=== PATIENT | female | born 1970 | race Caucasian/White ===

== ENCOUNTER 2016-08-30 12:39 | Day surgery (SDC) | payer BC ==
[~2016-08-30 12:39] MED LIST: BUPIVACAINE LIPOSOME/PF 1.3% 20 ML, SODIUM CHLORIDE 0.9% 10 ML MISCELLANE ONE; ceFAZolin 2 GM in SODIUM CHLORIDE 0.9% 100 ML IVPB ONE; metroNIDAZOLE-NS PMX 500 MG in SALINE 1 100ML.BAG IVPB STA
[2016-08-30 13:47] VITALS: TEMP 97.8; BMI 21.4
[2016-08-30] MEDS ORDERED: LIDOCAINE 1% 20 ML VIAL (10MG/ML) FOR IV START INTRADERMA ONE (13:57)
[2016-08-30] MEDS ORDERED: LACTATED RINGERS 1,000 ML IV ONE (14:00)
[2016-08-30] MEDS ORDERED: ONDANSETRON 4 MG/2 ML VIAL IVP ONE (14:01)
[2016-08-30] MEDS ORDERED: DEXAMETHASONE SOD PHOS (MDV) 100 MG/10 ML VIAL IV ONE (14:01)
[2016-08-30] MEDS ORDERED: NA PHOS,M-B/NA PHOS,DI-BA 133 ML ENEMA RECTAL ONE (14:09)
[2016-08-30] MEDS ORDERED: MIDAZOLAM 2 MG/2 ML VIAL IV ONE (14:35)
[2016-08-30] MEDS ORDERED: HEPARIN SODIUM,PORCINE 5,000 UNIT/ML 1 ML VIAL SQ ONE (14:42)
[2016-08-30] MEDS ORDERED: MIDAZOLAM 2 MG/2 ML VIAL ONE (16:20)
[2016-08-30] MEDS ORDERED: fentaNYL (PF) 50 MCG/ML 2 ML AMP ONE (16:20)
[2016-08-30] MEDS ORDERED: LIDOCAINE 1% INJ 10MG/ML (20 ML MDV) ONE (16:20)
[2016-08-30] MEDS ORDERED: PROPOFOL 10 MG/ML 20 ML VIAL IV ONE (16:20)
[2016-08-30] MEDS ORDERED: KETOROLAC 30 MG/ML 1 ML VIAL ONE (16:20)
[2016-08-30 17:01] VITALS: RESP 18
[2016-08-30 17:35] VITALS: BP 130/72; PULSE 78
--- NOTE | 2016-09-06 08:52 | P.OP ---
Date of Procedure: 08/30/16 Preoperative Diagnosis: Thrombosed external hemorrhoid Postoperative Diagnosis: Same Procedure(s) Performed: Excision of thrombosed external hemorrhoid 2 pedicle Anesthesia: JERRODA, local Surgeon: Mer Trammell Pathology: other Condition: stable Disposition: PACU Indications for Procedure: 46 years old female presents with acute onset of severe pain in the perianal area with palpable lump. Clinical exam showed thrombosed external hemorrhoids. Informed consent obtained and patient elected to undergo open hemorrhoidectomy and drainage of thrombosed external hemorrhoids Operative Findings: 2 pedicles of thrombosed external hemorrhoids located at 6 and 8 o clock respectively Description of Procedure: The patient was brought to the operating room and placed in prone jackknife position. The buttock cheeks were to assist in visualization. Betadine was used to prep the skin followed by application of sterile drapes. A timeout was performed to verify correct patient and correct procedure. 30 mL of Exparel was injected to create a local field block. Digital rectal examination was performed. No definite masses felt.. Perianal examination showed 2 thrombosed external hemorrhoid pedicle at 6 and 8:00 respectively. An elliptical skin incision was made overlying the thrombosed hemorrhoid. All the clotted blood was evacuated. Similarly the from was hemorrhoid at 8:00 was also evacuated. Hemostasis was checked. Patient tolerated the procedure well and was taken to postanesthesia care unit in stable condition Sponge, instrument and needle count were correct 2
== END 2016-08-30 17:35 | disposition home or self-care (01) ==
LOC: OR 12:39
PROVIDERS: ATTEND Surgery
DX: K64.5 Perianal venous thrombosis (principal); G89.4 Chronic pain syndrome; M79.7 Fibromyalgia; R51 Headache; F39 Unspecified mood [affective] disorder; F41.0 Panic disorder [episodic paroxysmal anxiety]; F34.1 Dysthymic disorder; F41.9 Anxiety disorder, unspecified; Z79.891 Long term (current) use of opiate analgesic; Z79.899 Other long term (current) drug therapy; Z88.1 Allergy status to other antibiotic agents; Z88.2 Allergy status to sulfonamides; Z88.8 Allergy status to other drugs, medicaments and biological substances
CPT/HCPCS: 81025; 88304; 46320; J2250; J1644; J0690; J2405; J2001; J3010; J1885; J1100; C9290; J2704; 99152; 99153

== ENCOUNTER → 2017-06-11 | Outpatient (CLI) | payer BC ==
[2017-06-11 12:32] LABS: Basophils % (A) 1 %; CHCM 33.2; Eosinophils # (A) 0.3 k/uL (0-0.7); Eosinophils % (A) 6 %; HCT 42.6 % (34.0-46.0); HDW 2.42; HGB 13.6 gm/dL (11.4-16.0); Luc # (Auto) 0.08; Luc % (Auto) 2; Lymphocytes # (A) 0.8 k/uL (1.0-4.8); Lymphocytes % (A) 19 %; MCV 90.7 fL (80.0-100.0); Mean Platelet Volume 7.4; Monocytes # (A) 0.6 k/uL (0-1.0); Monocytes % (A) 14 %; Neutrophils # (A) 2.5 k/uL (1.3-7.7); Neutrophils % (A) 58 %; WBC 4.3 k/uL (3.8-10.6); WBC (Perox) 4.58
[2017-06-11 12:43] LABS: Anion Gap 9 mmol/L; Blood Urea Nitrogen 11 mg/dL (7-17); Carbon Dioxide 27 mmol/L (22-30); Chloride 104 mmol/L (98-107); Glucose 96 mg/dL (74-99); Magnesium 2.1 mg/dL (1.6-2.3); Non-African American GFR(MDRD) >60 (>60 ml/min/1.73 sqM); Phosphorus 3.6 mg/dL (2.5-4.5); Potassium 3.8 mmol/L (3.5-5.1); Sodium 140 mmol/L (137-145); Uric Acid 4.4 mg/dL (3.7-7.4)
[2017-06-11 13:25] LABS: Appearance,Urine Cloudy (Clear); Bacteria,Urine Occasional /hpf; Bilirubin,Urine Negative (Negative); Glucose,Urine (UA) Negative (Negative); Ketones,Urine Negative (Negative); Leukocyte Esterase,Urine Negative (Negative); Mucus,Urine Many /hpf; Nitrite,Urine Negative (Negative); Particle Count 17426; Protein,Urine 1+ (Negative); RBC,Urine 1 /hpf (0-5); Specific Gravity,Urine 1.024 (1.001-1.035); Squamous Epithelial Cell,Urine 3 /hpf (0-4); UA Billing (MACRO vs. MICRO) MICRO; WBC,Urine 3 /hpf (0-5)
[2017-06-11 18:43] LABS: Iron Saturation 15.13 (12.00-45.00); Iron(FE) 46 ug/dL (50-170); Total Iron Binding Capacity 304 ug/dL (228-460)
== END | disposition home or self-care (01) ==
LOC: LABWHC1 11:35
PROVIDERS: ATTEND Internal Medicine Nephrology
DX: R80.9 Proteinuria, unspecified (principal); D64.9 Anemia, unspecified; E55.9 Vitamin D deficiency, unspecified; E21.3 Hyperparathyroidism, unspecified; M10.9 Gout, unspecified; N39.0 Urinary tract infection, site not specified
CPT/HCPCS: 36415; 80048; 81001; 81050; 82306; 82728; 83540; 83550; 83735; 83970; 84100; 84156; 84165; 84550; 85025; 86335

== ENCOUNTER → 2017-08-30 | Outpatient (CLI) | payer BC ==
[2017-08-30 17:31] LABS: T4, Free (Free Thyroxine) 1.08 ng/dL (0.78-2.19)
== END | disposition home or self-care (01) ==
LOC: LABWHC1 16:34
PROVIDERS: ATTEND Internal Medicine Endocrinology, Diabetes & Metabolism
DX: R53.83 Other fatigue (principal); R23.2 Flushing
CPT/HCPCS: 36415; 82607; 82670; 83001; 84146; 84439; 84443; 84481

== ENCOUNTER 2017-11-26 23:38 | Emergency (ER) | payer BC ==
[2017-11-26 23:44] VITALS: BP 153/94; PULSE 82; RESP 18; TEMP 98.8
[2017-11-27] MEDS ORDERED: DIPH,PERTUS(ACELL)TETVAC-LF 0.5 ML VIAL IM ONE (00:07)
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
== END 2017-11-27 00:36 | disposition home or self-care (01) ==
LOC: EC 23:38
DX: S41.111A Laceration without foreign body of right upper arm, initial encounter (principal); M19.90 Unspecified osteoarthritis, unspecified site; F41.9 Anxiety disorder, unspecified; Z23 Encounter for immunization; Z79.891 Long term (current) use of opiate analgesic; Z79.3 Long term (current) use of hormonal contraceptives; Z79.899 Other long term (current) drug therapy; Z88.2 Allergy status to sulfonamides; Z88.8 Allergy status to other drugs, medicaments and biological substances; W18.09XA Striking against other object with subsequent fall, initial encounter; Y92.009 Unspecified place in unspecified non-institutional (private) residence as the place of occurrence of the external cause
CPT/HCPCS: 12002; 90471; 90715; 99283

== ENCOUNTER 2018-01-25 22:09 | Emergency (ER) | payer BC ==
[2018-01-25 22:37] VITALS: RESP 18
[2018-01-26] MEDS ORDERED: MORPHINE SULFATE 4 MG/ML SYRINGE IM STA (00:09)
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
[2018-01-26] MEDS ORDERED: fentaNYL (PF) 50 MCG/ML 2 ML AMP IM STA (00:45)
[2018-01-26] MEDS ORDERED: HYDROmorphone 0.5 MG/0.5 ML SYRINGE IM STA (01:15)
[2018-01-26 02:22] VITALS: BP 134/79; PULSE 79; TEMP 97.8
== END 2018-01-26 02:21 | disposition home or self-care (01) ==
LOC: EC 22:09
DX: K62.89 Other specified diseases of anus and rectum (principal); M19.90 Unspecified osteoarthritis, unspecified site; F41.9 Anxiety disorder, unspecified; Z79.1 Long term (current) use of non-steroidal anti-inflammatories (NSAID); Z79.891 Long term (current) use of opiate analgesic; Z79.52 Long term (current) use of systemic steroids; Z79.899 Other long term (current) drug therapy; Z88.5 Allergy status to narcotic agent; Z88.1 Allergy status to other antibiotic agents; Z88.2 Allergy status to sulfonamides
CPT/HCPCS: 99283; 96372 ×3; J2270; J3010; J1170

== ENCOUNTER → 2018-02-13 | Outpatient (CLI) | payer BC, MEDICARE ==
--- NOTE | 2018-02-13 22:51 | CT ---
EXAMINATION TYPE: CT pelvis wo/w con DATE OF EXAM: 02/13/2018 COMPARISON: 09/20/2012 HISTORY: 47-year-old female anal pain X 18 months TECHNIQUE: Contiguous axial scanning of the pelvis before and after administration of 100 ml Isovue 3 00 IV contrast. Delayed images through pelvis and coronal/sagittal reconstructions performed. CT DLP: 1303 mGycm Automated exposure control for dose reduction was used. FINDINGS: There is moderate stool burden. Unable to clearly delineate the appendix due to closely clustered bow el loops. No lymphadenopathy seen in the lower abdomen. No dilated small bowel, free fluid, or free a ir. Bladder urine distended. Mild circumferential bladder wall thickening. Anteverted uterus. Central uterus appears slightly bulky and heterogeneous, reference axial image 30. Also, possible heterogeneously hypoechoic enlargement in the region of the cervix, axial image 34 an d sagittal image 59. Rectum shows no gross abnormality. Prominent and borderline sized inguinal lymph nodes measuring up t o 1.4 cm, nonspecific. Follicular change in both ovaries, dominant follicle on the left measuring 2.1 cm. Bones: Degenerative disc disease L5-S1 and to a lesser degree L4-L5. Moderate to severe right neural foraminal stenosis at L5-S1 and moderate on the left. IMPRESSION: 1. SOMEWHAT BULKY AND HETEROGENEOUS APPEARANCE TO THE CENTRAL UTERUS. RECOMMEND PELVIC ULTRASOUND TO EXCLUDE ANY ENDOMETRIAL ABNORMALITY. 2. THE CERVIX APPEARS HETEROGENEOUS AND ENLARGED. CORRELATE WITH DIRECT VISUALIZATION, PHYSICAL EXAM FINDINGS, AND PAP SMEAR RESULTS TO EXCLUDE UNDERLYING NEOPLASM. 3. MILD CIRCUMFERENTIAL BLADDER WALL THICKENING. CORRELATE TO EXCLUDE CYSTITIS.
== END | disposition home or self-care (01) ==
LOC: RADCTMAIN 17:27
PROVIDERS: ATTEND Family Medicine
DX: N32.89 Other specified disorders of bladder (principal); K62.89 Other specified diseases of anus and rectum
CPT/HCPCS: 72194; Q9967

== ENCOUNTER → 2018-03-06 | Outpatient (CLI) | payer MEDICARE, BC ==
--- NOTE | 2018-03-06 14:31 | US ---
EXAMINATION TYPE: US pelvis complete transvag DATE OF EXAM: 03/06/2018 COMPARISON: CT pelvis 02/13/2018, ultrasound pelvis 09/07/2012 CLINICAL HISTORY: N80.3 endometriosis of the pelvic peritoneum. anal pain, left pelvic pain, ablation 2011 TECHNIQUE: Transvaginal (TV) and Transabdominal (TA) . Transabdominal sonographic images of the pel vis were acquired. Transvaginal sonographic images were medically necessary to better assess the fol lowing anatomy: uterus and ovaries Date of LMP: unknown EXAM MEASUREMENTS: Uterus: 7.3 x 4.4 x 5.4 cm Endometrial Stripe: 0.4 cm Right Ovary: 2.4 x 1.5 x 1.5 cm Left Ovary: 2.9 x 1.4 x 2.7 cm 1. Uterus: Anteverted heterogeneous. nabothian cysts. Multiple cystic areas within body/fundus pos sibly along the endometrium, largest = 0.6cm 2. Endometrium: appears wnl as visualized 3. Right Ovary: lobulated 4. Left Ovary: dominant follicle = 1.7 x 1.3 x 1.8cm 5. Bilateral Adnexa: appears wnl 6. Posterior cul-de-sac: wnl IMPRESSION: Suspect there may be some minimal fluid along the endometrium, follow-up suggested, consi tristin HEMATOLOGIST ONCOLOGIST consult
== END | disposition home or self-care (01) ==
LOC: RADUSWWP 13:11
PROVIDERS: ATTEND Family Medicine
DX: N80.3 Endometriosis of pelvic peritoneum (principal)
CPT/HCPCS: 76830; 76856

== ENCOUNTER 2018-08-26 16:45 | Emergency (ER) | payer MEDICARE, BC ==
[2018-08-26 17:07] VITALS: TEMP 98.3
[2018-08-26 19:34] LABS: Basophils % (A) 1 %; Eosinophils # (A) 0.1 k/uL (0-0.7); Eosinophils % (A) 3 %; HCT 37.2 % (34.0-46.0); HGB 12.2 gm/dL (11.4-16.0); Lymphocytes # (A) 1.6 k/uL (1.0-4.8); Lymphocytes % (A) 39 %; MCH 28.6 pg (25.0-35.0); MCHC 32.9 g/dL (31.0-37.0); MCV 86.9 fL (80.0-100.0); Mean Platelet Volume 6.3; Monocytes # (A) 0.4 k/uL (0-1.0); Monocytes % (A) 10 %; Neutrophils # (A) 1.8 k/uL (1.3-7.7); Neutrophils % (A) 44 %; Platelet Count 269 k/uL (150-450); RBC 4.28 m/uL (3.80-5.40); RDW 13.8 % (11.5-15.5)
[2018-08-26 19:42] LABS: ALT 27 U/L (9-52); AST 24 U/L (14-36); Albumin 4.3 g/dL (3.5-5.0); Alkaline Phosphatase 59 U/L (38-126); Anion Gap 7 mmol/L; Blood Urea Nitrogen 12 mg/dL (7-17); Calcium 9.1 mg/dL (8.4-10.2); Carbon Dioxide 27 mmol/L (22-30); Chloride 103 mmol/L (98-107); Glucose 113 mg/dL (74-99); Potassium 3.8 mmol/L (3.5-5.1); Sodium 137 mmol/L (137-145); Total Bilirubin 0.6 mg/dL (0.2-1.3); Total Protein 7.2 g/dL (6.3-8.2)
[2018-08-26 19:43] LABS: Appearance,Urine Cloudy (Clear); Bilirubin,Urine Negative (Negative); Blood,Urine Large (Negative); Color,Urine Red; Glucose,Urine (UA) Negative (Negative); Ketones,Urine Negative (Negative); Leukocyte Esterase,Urine Small (Negative); Nitrite,Urine Negative (Negative); Protein,Urine 1+ (Negative); RBC,Urine >182 /hpf (0-5); Specific Gravity,Urine 1.014 (1.001-1.035); Urobilinogen,Urine <2.0 mg/dL (<2.0); WBC,Urine >182 /hpf (0-5)
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
--- NOTE | 2018-08-26 21:12 | US ---
EXAMINATION TYPE: US transvaginal DATE OF EXAM: 08/26/2018 COMPARISON: CT pelvis February 13, 2018. Pelvic ultrasound March 06, 2018 CLINICAL HISTORY: Pain. anal pain and vaginal pain. Ken[place] lump in vagina and anal area.Ablation done 2 012. TECHNIQUE: Transvaginal (TV). Transabdominal sonographic images of the pelvis were acquired. Trans vaginal sonographic images were medically necessary to better assess the following anatomy: EXAM MEASUREMENTS: Uterus: 8.0 x 4.4 x 5.0 cm Endometrial Stripe: 0.6 cm 1. Uterus: Anteverted Nabothian cysts seen. 2. Endometrium: wnl 3. Right Ovary: Obscured by overlying bowel gas 4. Left Ovary: Obscured by overlying bowel gas 5. Bilateral Adnexa: wnl 6. Posterior cul-de-sac: wnl Initial images show small nabothian cysts in the cervix. Heterogeneous uterus is present. Endometrium is poorly defined measuring up to 6 mm. No free fluid is seen in pelvis. Neither ovary is clearly visualized on images saved. No adnexal lesions are seen. IMPRESSION: No suspicious finding seen to account for patient's symptoms.
--- NOTE | 2018-08-26 23:00 | CT ---
EXAM: CT Abdomen and Pelvis With Intravenous Contrast CLINICAL HISTORY: Pain TECHNIQUE: Axial computed tomography images of the abdomen and pelvis with intravenous contrast. CTDI is 0.085, 0.085, 7, 5.8 mGy and DLP is 617.5 mGy-cm. This CT exam was performed using one or more of the following dose reduction techniques: automated exposure control, adjustment of the mA and/or kV according to patient size, and/or use of iterative reconstruction technique. COMPARISON: 02/13/2018 FINDINGS: Lung bases: Mild bilateral dependent densities are favored to represent atelectasis. ABDOMEN: Liver: Unremarkable. Gallbladder and bile ducts: Unremarkable. No calcified stones. Pancreas: Unremarkable. Spleen: Unremarkable. Adrenals: Unremarkable. Kidneys and ureters: Subcentimeter focus of hypoattenuation in the left kidney is too small to characterize. No hydronephrosis. Stomach and bowel: Moderate colonic stool is compatible constipation. PELVIS: Appendix: Not identified. Bladder: Unremarkable. Reproductive: Unremarkable as visualized. ABDOMEN and PELVIS: Intraperitoneal space: Unremarkable. No free air. Bones/joints: No acute osseous abnormality. Soft tissues: Bilateral breast implants. Vasculature: Unremarkable. No abdominal aortic aneurysm. Lymph nodes: Unremarkable. IMPRESSION: No acute findings. Moderate colonic stool is suggestive of constipation.
[2018-08-26 23:16] VITALS: RESP 16
[2018-08-26] MEDS ORDERED: MAGNESIUM CITRATE 296 ML BOTTLE PO ONE (23:37)
[2018-08-27 01:48] VITALS: BP 113/68; PULSE 77
== END 2018-08-27 00:05 | disposition home or self-care (01) ==
LOC: EC 16:45
DX: N93.9 Abnormal uterine and vaginal bleeding, unspecified (principal); R10.2 Pelvic and perineal pain; N89.8 Other specified noninflammatory disorders of vagina; G89.29 Other chronic pain; Z88.1 Allergy status to other antibiotic agents; Z88.2 Allergy status to sulfonamides; Z88.5 Allergy status to narcotic agent; Z79.891 Long term (current) use of opiate analgesic; Z79.899 Other long term (current) drug therapy; Z98.51 Tubal ligation status; Z98.890 Other specified postprocedural states; Z80.0 Family history of malignant neoplasm of digestive organs
CPT/HCPCS: 36415; 80053; 85025; 81001; 76830; 74177; 99284; Q9967

== ENCOUNTER → 2018-09-25 | Outpatient (CLI) | payer MEDICARE ==
--- NOTE | 2018-09-27 08:25 | MM ---
Reason for exam: screening (asymptomatic). Last mammogram was performed 3 years and 2 months ago. History: Patient is nulliparous. Retro-pectoral saline implants in both breasts, October 2003. Took hormonal contraceptives for 20 years beginning at age 42. Physical Findings: A clinical breast exam by your physician is recommended on an annual basis and results should be correlated with mammographic findings. MG 3D Screen Mammo Imp/Cad Bilateral CC, MLO, and ID view(s) were taken. Prior study comparison: August 10, 2015, bilateral MG screening mammo implant/CAD. August 27, 2013, CAD bilateral diagnostic mammogram. The breast tissue is heterogeneously dense. This may lower the sensitivity of mammography. Bilateral saline implants. No significant changes when compared with prior studies. ASSESSMENT: Negative, BI-RAD 1 RECOMMENDATION: Routine screening mammogram of both breasts in 1 year. Patient should continue monthly self breast exams. A negative report should not preclude additional follow up of suspicious palpable abnormalities.
== END | disposition home or self-care (01) ==
LOC: RADMAMWWP 15:33
PROVIDERS: ATTEND Obstetrics & Gynecology
DX: Z12.31 Encounter for screening mammogram for malignant neoplasm of breast (principal)
CPT/HCPCS: 77063; 77067

== ENCOUNTER → 2019-03-23 | Outpatient (CLI) | payer MEDICARE | LOC: LABWHC1 09:00 | PROVIDERS: ATTEND Nurse Practitioner Adult Health | DX: L29.0 Pruritus ani (principal) | CPT/HCPCS: 87328; 87329 ==

== ENCOUNTER 2019-05-26 20:47 | Emergency (ER) | payer MEDICARE ==
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
[2019-05-26 21:47] LABS: Appearance,Urine Clear (Clear); Bilirubin,Urine Negative (Negative); Blood,Urine Negative (Negative); Color,Urine Light Yellow; Glucose,Urine (UA) Negative (Negative); Ketones,Urine Negative (Negative); Leukocyte Esterase,Urine Negative (Negative); Nitrite,Urine Negative (Negative); PH, Urine 6.5 (5.0-8.0); Protein,Urine Negative (Negative); Specific Gravity,Urine 1.008 (1.001-1.035); Urobilinogen,Urine <2.0 mg/dL (<2.0)
[2019-05-26 22:20] VITALS: BP 142/86; PULSE 76; RESP 17; TEMP 97.8
== END 2019-05-26 22:30 | disposition home or self-care (01) ==
LOC: EC 20:47
DX: L98.499 Non-pressure chronic ulcer of skin of other sites with unspecified severity (principal); F41.9 Anxiety disorder, unspecified; Z79.899 Other long term (current) drug therapy; M19.90 Unspecified osteoarthritis, unspecified site; Z88.2 Allergy status to sulfonamides; Z88.1 Allergy status to other antibiotic agents
CPT/HCPCS: 36415; 81003; 86780; 87040; 87070; 87205; 99283

== ENCOUNTER → 2019-06-09 | Outpatient (CLI) | payer MEDICARE ==
[2019-06-09 18:00] LABS: Appearance,Urine Clear (Clear); Bilirubin,Urine Negative (Negative); Blood,Urine Negative (Negative); Color,Urine Yellow; Glucose,Urine (UA) Negative (Negative); Ketones,Urine Negative (Negative); Leukocyte Esterase,Urine Negative (Negative); Nitrite,Urine Negative (Negative); PH, Urine 6.5 (5.0-8.0); Protein,Urine Trace (Negative); Specific Gravity,Urine 1.022 (1.001-1.035); Urobilinogen,Urine <2.0 mg/dL (<2.0)
[2019-06-10 06:47] LABS: African American GFR (CKD) 99.6 (60.0-200.0); Anion Gap 11.3 mmol/L (4.00-12.00); BUN/Creat Ratio 26.25 Ratio (12.00-20.00); Carbon Dioxide 28.7 mmol/L (21.6-31.8); Potassium 3.2 mmol/L (3.5-5.5)
[2019-06-10 06:49] LABS: Total Protein,Urine Random 16.2 mg/dL (0.0-13.5)
[2019-06-10 21:24] LABS: Total Volume 24 Hour,Urine 1800 mL
== END | disposition home or self-care (01) ==
LOC: LABWHC1 17:03
PROVIDERS: ATTEND Nurse Practitioner Family
DX: R80.9 Proteinuria, unspecified (principal)
CPT/HCPCS: 36415; 80048; 81003; 81050; 82570; 84156

== ENCOUNTER 2019-12-20 23:40 | Emergency (ER) | payer MEDICARE ==
[2019-12-20 23:56] VITALS: TEMP 96.8
[2019-12-21] MEDS ORDERED: SODIUM CHLORIDE 0.9% 1,000 ML IV ONE (00:01)
[2019-12-21 00:12] LABS: Basophils # (A) 0.1 k/uL (0-0.2); Basophils % (A) 1 %; Eosinophils # (A) 0.2 k/uL (0-0.7); Eosinophils % (A) 5 %; HCT 36.1 % (34.0-46.0); Lymphocytes # (A) 1.4 k/uL (1.0-4.8); Lymphocytes % (A) 33 %; MCH 29.5 pg (25.0-35.0); MCHC 33.1 g/dL (31.0-37.0); MCV 89.1 fL (80.0-100.0); Mean Platelet Volume 7.2; Monocytes # (A) 0.4 k/uL (0-1.0); Monocytes % (A) 8 %; Neutrophils # (A) 2.1 k/uL (1.3-7.7); Neutrophils % (A) 51 %; Platelet Count 222 k/uL (150-450); RBC 4.05 m/uL (3.80-5.40); RDW 13.3 % (11.5-15.5); VBG PH 7.31 (7.31-7.41); WBC 4.2 k/uL (3.8-10.6)
[2019-12-21 00:22] LABS: ALT 25 U/L (4-34); AST 29 U/L (14-36); Acetaminophen <10.0 ug/mL; African American GFR (CKD) >90 (>60 ml/min/1.73 sqM); Albumin 3.9 g/dL (3.5-5.0); Alcohol <10 mg/dL; Alkaline Phosphatase 57 U/L (38-126); Anion Gap 6 mmol/L; Blood Urea Nitrogen 8 mg/dL (7-17); Calcium 8.5 mg/dL (8.4-10.2); Carbon Dioxide 27 mmol/L (22-30); Chloride 103 mmol/L (98-107); Glucose 118 mg/dL (74-99); Non-African American GFR(CKD) >90 (>60 ml/min/1.73 sqM); Potassium 3.4 mmol/L (3.5-5.1); Salicylate <1.0 mg/dL; Sodium 136 mmol/L (137-145); Total Bilirubin 0.3 mg/dL (0.2-1.3); Total Protein 6.6 g/dL (6.3-8.2)
--- NOTE | 2019-12-21 01:01 | CT ---
EXAMINATION TYPE: CT brain wo con DATE OF EXAM: 12/21/2019 COMPARISON: None HISTORY: AMS CT DLP: 1099.40 mGycm Automated exposure control for dose reduction was used. Ventricles and sulci appear normal. There is no mass effect nor midline shift. There is no sign of in tracranial hemorrhage. There is no evidence of cortical infarct. Calvarium is intact. Sella turcica a ppears normal. IMPRESSION: Normal unenhanced head CT scan.
--- NOTE | 2019-12-21 01:03 | XR ---
EXAMINATION TYPE: XR chest 2V DATE OF EXAM: 12/21/2019 COMPARISON: 09/18/2012 HISTORY: Altered mental status. TECHNIQUE: FINDINGS: Heart and mediastinum are normal. Lungs are clear. Diaphragm is normal. Bony thorax appears normal. There are chest leads. IMPRESSION: Normal chest. No change.
[2019-12-21 01:46] LABS: Appearance,Urine Clear (Clear); Bilirubin,Urine Negative (Negative); Blood,Urine Negative (Negative); Color,Urine Yellow; Glucose,Urine (UA) Negative (Negative); Ketones,Urine Negative (Negative); Leukocyte Esterase,Urine Negative (Negative); Nitrite,Urine Negative (Negative); Protein,Urine Negative (Negative); Specific Gravity,Urine 1.022 (1.001-1.035); Urobilinogen,Urine <2.0 mg/dL (<2.0)
[2019-12-21 01:55] LABS: Amphetamine Screen,Urine Detected (NotDetected); Barbiturate Screen,Urine Detected (NotDetected); Benzodiazepines Screen,Urine Detected (NotDetected); Cocaine Screen,Urine Not Detected (NotDetected); Methadone Screen, Urine Not Detected (NotDetected); Opiate Screen,Urine Detected (NotDetected); Oxycodone Screen, Urine Detected (NotDetected); Phencyclidine Screen,Urine Not Detected (NotDetected); Tricyclic Antidepressant,Urine Detected (NotDetected); Urn Cannabinoid Scrn Detected (NotDetected)
[2019-12-21 02:18] VITALS: BP 128/88; PULSE 65; RESP 12
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
== END 2019-12-21 02:50 | disposition home or self-care (01) ==
LOC: EC 23:40
DX: R41.82 Altered mental status, unspecified (principal); E87.6 Hypokalemia; G43.909 Migraine, unspecified, not intractable, without status migrainosus; G89.4 Chronic pain syndrome; R47.81 Slurred speech; F41.9 Anxiety disorder, unspecified; Z79.899 Other long term (current) drug therapy; Z88.1 Allergy status to other antibiotic agents; Z88.2 Allergy status to sulfonamides; Z88.5 Allergy status to narcotic agent
CPT/HCPCS: 36415; 93005; 80053; 84443; 82375; 82803; 85025; 81003; 80306; 83520; 71046; 70450; 99285; 96360; 96361 ×2; G0480 ×2; 80320; 80329

== ENCOUNTER 2021-04-08 19:34 | Emergency (ER) | payer MEDICARE ==
[2021-04-08 20:13] VITALS: BP 151/91; PULSE 77; RESP 18; TEMP 99.7
[2021-04-08] MEDS ORDERED: ACETAMINOPHEN TAB 325 MG TAB PO STA (21:12)
[2021-04-08 21:57] LABS: Basophils # (A) 0.1 k/uL (0-0.2); Basophils % (A) 1 %; Eosinophils # (A) 0.2 k/uL (0-0.7); Eosinophils % (A) 5 %; HCT 36.8 % (34.0-46.0); HGB 12.4 gm/dL (11.4-16.0); Lymphocytes # (A) 2.1 k/uL (1.0-4.8); Lymphocytes % (A) 43 %; MCH 30.5 pg (25.0-35.0); MCHC 33.9 g/dL (31.0-37.0); Mean Platelet Volume 7.3; Monocytes # (A) 0.5 k/uL (0-1.0); Monocytes % (A) 9 %; Neutrophils # (A) 1.9 k/uL (1.3-7.7); Neutrophils % (A) 39 %; Platelet Count 249 k/uL (150-450); RBC 4.08 m/uL (3.80-5.40); RDW 12.3 % (11.5-15.5); WBC 4.8 k/uL (3.8-10.6)
[2021-04-08 22:12] LABS: ALT 22 U/L (4-34); AST 27 U/L (14-36); African American GFR (CKD) >90 (>60 ml/min/1.73 sqM); Albumin 4.1 g/dL (3.5-5.0); Alkaline Phosphatase 77 U/L (38-126); Anion Gap 7 mmol/L; Blood Urea Nitrogen 15 mg/dL (7-17); Calcium 9.3 mg/dL (8.4-10.2); Carbon Dioxide 26 mmol/L (22-30); Chloride 104 mmol/L (98-107); Glucose 92 mg/dL (74-99); Non-African American GFR(CKD) >90 (>60 ml/min/1.73 sqM); Sodium 137 mmol/L (137-145); Total Bilirubin 0.3 mg/dL (0.2-1.3); Total Protein 6.9 g/dL (6.3-8.2)
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
== END 2021-04-08 22:42 | disposition home or self-care (01) ==
LOC: EC 19:34
DX: R21 Rash and other nonspecific skin eruption (principal); Z88.1 Allergy status to other antibiotic agents; Z88.2 Allergy status to sulfonamides; Z88.8 Allergy status to other drugs, medicaments and biological substances; Z20.822 Contact with and (suspected) exposure to COVID-19
CPT/HCPCS: 36415; 80053; 85025; 87635; 99283

== ENCOUNTER 2022-02-28 18:43 | Emergency (ER) | payer MEDICARE ==
[2022-02-28 19:03] VITALS: TEMP 98.3
[2022-02-28] MEDS ORDERED: HYDROmorphone 1 MG/ML 1 ML SYRINGE IM STA (20:41)
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
[2022-02-28 21:03] LABS: Basophils % (A) 1 %; Eosinophils # (A) 0.1 k/uL (0-0.7); Eosinophils % (A) 1 %; HCT 37.2 % (34.0-46.0); HGB 12.5 gm/dL (11.4-16.0); Lymphocytes # (A) 1.5 k/uL (1.0-4.8); Lymphocytes % (A) 21 %; MCH 30.5 pg (25.0-35.0); MCHC 33.6 g/dL (31.0-37.0); MCV 90.6 fL (80.0-100.0); Mean Platelet Volume 7.3; Monocytes # (A) 0.6 k/uL (0-1.0); Monocytes % (A) 9 %; Neutrophils # (A) 4.6 k/uL (1.3-7.7); Neutrophils % (A) 66 %; Platelet Count 260 k/uL (150-450); RBC 4.11 m/uL (3.80-5.40); RDW 12.3 % (11.5-15.5); WBC 6.9 k/uL (3.8-10.6)
[2022-02-28 21:15] LABS: ALT 17 U/L (4-34); AST 26 U/L (14-36); African American GFR (CKD) >90 (>60 ml/min/1.73 sqM); Albumin 4.1 g/dL (3.5-5.0); Alkaline Phosphatase 88 U/L (38-126); Anion Gap 10 mmol/L; Blood Urea Nitrogen 27 mg/dL (7-17); C Reactive Protein <0.5 mg/dL (<1.0); Calcium 8.7 mg/dL (8.4-10.2); Carbon Dioxide 25 mmol/L (22-30); Chloride 102 mmol/L (98-107); GGT 23 U/L (12-43); Glucose 103 mg/dL (74-99); Lipase 67 U/L (23-300); Non-African American GFR(CKD) >90 (>60 ml/min/1.73 sqM); Potassium 3.9 mmol/L (3.5-5.1); Sodium 137 mmol/L (137-145); Total Bilirubin 0.3 mg/dL (0.2-1.3); Total Protein 6.7 g/dL (6.3-8.2)
[2022-02-28 21:49] VITALS: BP 119/75; PULSE 70; RESP 16
[2022-02-28 22:11] LABS: Erythrocyte Sedimentation Rate 2 mm/hr (0-20)
== END 2022-02-28 21:49 | disposition home or self-care (01) ==
LOC: EC 18:43
DX: G89.29 Other chronic pain (principal); K62.89 Other specified diseases of anus and rectum; R63.4 Abnormal weight loss; R53.82 Chronic fatigue, unspecified; M19.90 Unspecified osteoarthritis, unspecified site; Z88.5 Allergy status to narcotic agent; Z88.1 Allergy status to other antibiotic agents; Z88.2 Allergy status to sulfonamides
CPT/HCPCS: 36415; 80053; 85652; 82977; 83690; 85025; 86140; 99284; 96372; J1170

== ENCOUNTER 2022-03-01 13:50 | Emergency (ER) | payer MEDICARE ==
[2022-03-01 13:59] VITALS: TEMP 98.3
[2022-03-01] MEDS ORDERED: SODIUM CHLORIDE 0.9% 1,000 ML IV STA (15:57)
[2022-03-01] MEDS ORDERED: HYDROmorphone 1 MG/ML 1 ML SYRINGE IVP STA ×2 (15:57→18:16)
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
[2022-03-01 16:55] LABS: Basophils % (A) 1 %; Eosinophils # (A) 0.1 k/uL (0-0.7); Eosinophils % (A) 1 %; HCT 38.2 % (34.0-46.0); Lymphocytes # (A) 1.2 k/uL (1.0-4.8); Lymphocytes % (A) 30 %; MCHC 33.9 g/dL (31.0-37.0); MCV 91.2 fL (80.0-100.0); Mean Platelet Volume 7.3; Monocytes # (A) 0.3 k/uL (0-1.0); Monocytes % (A) 8 %; Neutrophils # (A) 2.3 k/uL (1.3-7.7); Neutrophils % (A) 57 %; Platelet Count 278 k/uL (150-450); RBC 4.19 m/uL (3.80-5.40); RDW 12.6 % (11.5-15.5)
[2022-03-01 17:13] LABS: ALT 15 U/L (4-34); AST 20 U/L (14-36); African American GFR (CKD) >90 (>60 ml/min/1.73 sqM); Albumin 4.1 g/dL (3.5-5.0); Alkaline Phosphatase 64 U/L (38-126); Anion Gap 9 mmol/L; Blood Urea Nitrogen 17 mg/dL (7-17); Calcium 8.8 mg/dL (8.4-10.2); Carbon Dioxide 27 mmol/L (22-30); Chloride 103 mmol/L (98-107); Glucose 96 mg/dL (74-99); Lipase 62 U/L (23-300); Non-African American GFR(CKD) >90 (>60 ml/min/1.73 sqM); Potassium 3.4 mmol/L (3.5-5.1); Sodium 139 mmol/L (137-145); Total Bilirubin 0.1 mg/dL (0.2-1.3); Total Protein 6.7 g/dL (6.3-8.2)
--- NOTE | 2022-03-01 17:23 | CT ---
EXAMINATION TYPE: CT abdomen pelvis w con DATE OF EXAM: 03/01/2022 COMPARISON: 08/26/2018 HISTORY: c/o lower abdominal and pelvic pain. CT DLP: 616 mGycm Automated exposure control for dose reduction was used. CONTRAST: Performed with IV Contrast, patient injected with 100 mL of Isovue 300. Images obtained from the diaphragm to the floor the pelvis with the IV contrast. The lung bases are c lear. No pleural effusion. Heart size is normal. No pericardial effusion. There is bilateral breast implants. Liver spleen stomach pancreas gallbladder appear intact. The bile ducts are not dilated. There is no adrenal mass. Kidneys show satisfactory contrast opacification. There is no hydronephrosi s. There is 1 cm vertical cyst anterior left kidney. No retroperitoneal adenopathy. Bladder distends smoothly. No inguinal hernia. No free fluid in the pelvis. No pelvic mass. Uterus is anteverted. There is no mesenteric edema. No ascites or free air. No sign of a bowel obstruction. Appendix not se en. No sign of thickened appendix The lumbar vertebrae have normal alignment. There is narrowing and vacuum disc at L5-S1. No compressi on fracture. The bony pelvis is intact. The hip joints are intact. IMPRESSION: Negative CT scan abdomen and pelvis. No pelvic mass. Spondylotic changes in the lumbar sp ine.
[2022-03-01 18:45] LABS: Appearance,Urine Cloudy (Clear); Bacteria,Urine Moderate /hpf; Bilirubin,Urine Negative (Negative); Blood,Urine Negative (Negative); Budding Yeast,Urine Rare /hpf; Color,Urine Light Yellow; Glucose,Urine (UA) Negative (Negative); Ketones,Urine Negative (Negative); Leukocyte Esterase,Urine Negative (Negative); Mucus,Urine Rare /hpf; Nitrite,Urine Negative (Negative); Protein,Urine Trace (Negative); RBC,Urine 2 /hpf (0-5); Squamous Epithelial Cell,Urine 1 /hpf (0-4); Urobilinogen,Urine <2.0 mg/dL (<2.0); WBC,Urine 1 /hpf (0-5)
[2022-03-01 18:54] LABS: Specific Gravity,Urine >1.050 (1.001-1.035)
[2022-03-01 21:39] VITALS: BP 133/78; PULSE 71; RESP 15
== END 2022-03-01 21:40 | disposition home or self-care (01) ==
LOC: EC 13:50
DX: K62.89 Other specified diseases of anus and rectum (principal); M19.90 Unspecified osteoarthritis, unspecified site; F41.9 Anxiety disorder, unspecified; Z88.5 Allergy status to narcotic agent; Z88.1 Allergy status to other antibiotic agents; Z88.2 Allergy status to sulfonamides; Z79.899 Other long term (current) drug therapy
CPT/HCPCS: 36415; 80053; 83690; 85025; 81001; 74177; 99284; 96374; 96375; 96361 ×2; J1170; Q9967

== ENCOUNTER 2022-03-03 04:45 | Emergency (ER) | payer MEDICARE ==
[2022-03-03] MEDS ORDERED: MORPHINE SULFATE 4 MG/ML SYRINGE IV STA ×2 (05:23→08:22)
[2022-03-03] MEDS ORDERED: SODIUM CHLORIDE 0.9% 500 ML 500 ML IV STA (05:24)
[2022-03-03 05:47] LABS: Basophils # (A) 0.1 k/uL (0-0.2); Basophils % (A) 1 %; Eosinophils # (A) 0.1 k/uL (0-0.7); Eosinophils % (A) 2 %; HCT 42.4 % (34.0-46.0); Lymphocytes # (A) 1.7 k/uL (1.0-4.8); Lymphocytes % (A) 32 %; MCH 29.4 pg (25.0-35.0); MCV 89.2 fL (80.0-100.0); Monocytes # (A) 0.4 k/uL (0-1.0); Monocytes % (A) 8 %; Neutrophils # (A) 2.8 k/uL (1.3-7.7); Neutrophils % (A) 55 %; Platelet Count 299 k/uL (150-450); RBC 4.76 m/uL (3.80-5.40); RDW 12.1 % (11.5-15.5); WBC 5.1 k/uL (3.8-10.6)
[2022-03-03 06:09] LABS: ALT 16 U/L (4-34); AST 21 U/L (14-36); African American GFR (CKD) >90 (>60 ml/min/1.73 sqM); Albumin 4.4 g/dL (3.5-5.0); Alkaline Phosphatase 67 U/L (38-126); Amylase 65 U/L (30-110); Anion Gap 11 mmol/L; Blood Urea Nitrogen 13 mg/dL (7-17); Calcium 9.4 mg/dL (8.4-10.2); Carbon Dioxide 26 mmol/L (22-30); Chloride 103 mmol/L (98-107); Glucose 107 mg/dL (74-99); Lipase 94 U/L (23-300); Non-African American GFR(CKD) >90 (>60 ml/min/1.73 sqM); Potassium 3.6 mmol/L (3.5-5.1); Sodium 140 mmol/L (137-145); Total Bilirubin 0.1 mg/dL (0.2-1.3); Total Protein 7.2 g/dL (6.3-8.2)
[2022-03-03 08:02] VITALS: RESP 18
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
[2022-03-03 09:51] VITALS: BP 164/101; PULSE 72; TEMP 97.7
== END 2022-03-03 09:51 | disposition home or self-care (01) ==
LOC: EC 04:45
DX: F11.23 Opioid dependence with withdrawal (principal); Z88.2 Allergy status to sulfonamides; Z88.6 Allergy status to analgesic agent; Z88.8 Allergy status to other drugs, medicaments and biological substances
CPT/HCPCS: 36415; 80053; 82150; 83690; 85025; 87635; 99284; 96374; 96376; 96361; J2270

== ENCOUNTER 2023-01-25 17:48 | Emergency (ER) | payer MEDICARE ==
[2023-01-25] MEDS ORDERED: SODIUM CHLORIDE 0.9% 1,000 ML IV STA ×2 (19:05→21:54)
[2023-01-25] MEDS ORDERED: KETOROLAC 15 MG/ML 1 ML VIAL IVP STA (19:05)
[2023-01-25] MEDS ORDERED: SODIUM CHLORIDE 0.9% 500 ML 500 ML IV STA (19:05)
[2023-01-25 19:32] LABS: Basophils % (A) 1 %; Eosinophils # (A) 0.1 k/uL (0-0.7); Eosinophils % (A) 2 %; HCT 40.6 % (34.0-46.0); HGB 13.9 gm/dL (11.4-16.0); Lymphocytes # (A) 1.8 k/uL (1.0-4.8); Lymphocytes % (A) 43 %; MCH 29.9 pg (25.0-35.0); MCHC 34.3 g/dL (31.0-37.0); MCV 87.1 fL (80.0-100.0); Mean Platelet Volume 7.2; Monocytes # (A) 0.4 k/uL (0-1.0); Monocytes % (A) 10 %; Neutrophils # (A) 1.7 k/uL (1.3-7.7); Neutrophils % (A) 42 %; Platelet Count 287 k/uL (150-450); RBC 4.66 m/uL (3.80-5.40); WBC 4.1 k/uL (3.8-10.6)
[2023-01-25 19:59] LABS: ALT 13 U/L (4-34); AST 18 U/L (14-36); African American GFR (CKD) >90 (>60 ml/min/1.73 sqM); Albumin 4.4 g/dL (3.5-5.0); Alkaline Phosphatase 72 U/L (38-126); Anion Gap 12 mmol/L; Blood Urea Nitrogen 12 mg/dL (7-17); Calcium 9.4 mg/dL (8.4-10.2); Carbon Dioxide 25 mmol/L (22-30); Chloride 103 mmol/L (98-107); Glucose 96 mg/dL (74-99); Non-African American GFR(CKD) >90 (>60 ml/min/1.73 sqM); Potassium 3.5 mmol/L (3.5-5.1); Sodium 140 mmol/L (137-145); Total Bilirubin 0.4 mg/dL (0.2-1.3); Total Protein 7.5 g/dL (6.3-8.2)
--- NOTE | 2023-01-25 21:03 | CT ---
EXAMINATION TYPE: CT abdomen pelvis wo con DATE OF EXAM: 01/25/2023 HISTORY: Flank pain. Hx of kidney stones. CT DLP: 536.3 mGycm. Automated Exposure Control for Dose Reduction was Utilized. TECHNIQUE: CT scan of the abdomen and pelvis is performed without oral or IV contrast. COMPARISON: 03/01/2022 FINDINGS: Within the limitations of a non-contrast study, the following observations are made. LUNG BASES: No acute process. Coronary calcifications noted. LIVER/GB: No significant abnormality is appreciated. PANCREAS: No significant abnormality is seen. SPLEEN: No significant abnormality is seen. ADRENALS: No significant abnormality is seen. KIDNEYS: There is no hydronephrosis or hydroureter. Bilateral small nonobstructing renal calcificatio ns are noted. BOWEL: No dilated loops of bowel or inflammatory change. Colonic stool volume is within normal limits . GENITAL ORGANS: No gross abnormality seen. LYMPH NODES: No greater than 1cm abdominal or pelvic lymph nodes are appreciated. OSSEOUS STRUCTURES: No significant abnormality is seen. IMPRESSION: No renal stones or hydronephrosis is seen bilaterally.
--- NOTE | 2023-01-25 22:25 | ED ---
Abdominal Pain HPI - General Chief Complaint: Abdominal Pain Stated Complaint: abd pain, back pain Time Seen by Provider: 01/25/23 19:00 Source: patient Mode of arrival: ambulatory Limitations: no limitations - History of Present Illness Initial Comments: This 52-year-old female presents with a complaint of some left lower abdominal pain and left flank pain. She states that it just came on this morning. She does have a history of kidney stones and this is somewhat similar. She states that she has had some chills but no definite fever. She has had malodorous urine with slight dysuria but no hematuria or frequency. She denies any nausea, vomiting, diarrhea, or constipation. No other complaints or modifying factors. - Related Data Home Medications Medication Instructions Recorded Confirmed Rizatriptan Benzoate [Maxalt] 10 mg PO DAILY PRN 08/30/22 01/25/23 oxyCODONE HCL [oxyCODONE HCL (IR)] 20 mg PO QID 08/30/22 01/25/23 Allergies Allergy/AdvReac Type Severity Reaction Status Date / Time methadone Allergy Rash/Hives Verified 01/25/23 22:11 metronidazole [From Flagyl] Allergy Rash/Hives Verified 01/25/23 22:11 Sulfa (Sulfonamide Allergy Rash/Hives Verified 01/25/23 22:11 Antibiotics) Review of Systems ROS Statement: Those systems with pertinent positive or pertinent negative responses have been documented in the HPI. ROS Other: All systems not noted in ROS Statement are negative. Past Medical History Past Medical History: Osteoarthritis (OA), Vascular Disorder Additional Past Medical History / Comment(s): anal pain, VULVADEMIA, LICHEN CIRRHOSIS, Reflex sympathetic disorder, CHRONIC PAIN/PARASTHESIAS RIGHT ARM DUE TO INJURY at work History of Any Multi-Drug Resistant Organisms: None Reported Past Surgical History: Tubal Ligation, Uterine Ablation Additional Past Surgical History / Comment(s): RIGHT SHOULDER (ROTATOR CUFF) SURGERY 2011, LEFT KNEE SCOPE X 3, THORACIC OUTLET SURGERY 2014 Past Anesthesia/Blood Transfusion Reactions: No Reported Reaction Past Psychological History: Anxiety Smoking Status: Never smoker Past Alcohol Use History: None Reported Past Drug Use History: None Reported - Past Family History Mother Family Medical History: Cancer Additional Family Medical History / Comment(s): COLORECTAL Father Family Medical History: Cancer Additional Family Medical History / Comment(s): UNSURE OF SITE General Exam - General Exam Comments Initial Comments: GENERAL: The patient is well nourished and well hydrated. VITAL SIGNS: Heart rate, blood pressure, respiratory rate reviewed as recorded in nurse's notes. EYES: Pupils are round and reactive. Extraocular movements are intact. No conjunctival / lid redness or swelling. ENT: No external evidence of injury, swelling, or ecchymosis. Airway is patent. Throat is clear. NECK: Nontender. No swelling or evidence of injury. No subcutaneous emphysema. Trachea is midline. No thyroid mass. HEART: Regular rate and rhythm. Good peripheral pulses. LUNGS/CHEST: Breath sounds clear and equal bilaterally. No rales, rhonchi, or wheezes. No ecchymosis, subcutaneous emphysema, or tenderness. ABDOMEN: Abdomen soft with slight tenderness noted to the left flank and lower back as well as the left lower quadrant. No palpable masses or organomegaly. No peritoneal signs. No abdominal wall swelling or ecchymosis. EXTREMITIES: No extremity tenderness. Normal muscle tone and function. No thoracolumbar tenderness. NEUROLOGIC: Sensation is grossly intact. Cranial nerve exam reveals face is symmetrical, tongue is midline, speech is clear. SKIN: No abrasions or ecchymosis is noted. No induration or masses noted. PSYCHIATRIC: Alert and oriented. Appropriate behavior and judgment. Limitations: no limitations Course Vital Signs 01/25/23 18:22 Temperature 98 F Pulse Rate 82 Respiratory 18 Rate Blood Pressure 164/95 O2 Sat by Pulse 96 Oximetry Medical Decision Making - Medical Decision Making The patient was seen and examined. All diagnostics are reviewed. The laboratory does not show any acute significant abnormalities. The computed tomography scan of the abdomen and pelvis does not show any acute pathology per radiologist. IV is established and she is hydrated. She does receive some Toradol and has moderate relief. She later does complain of additional pain and is given some Tylenol. There is delay in disposition the patient due to her not giving us a urinalysis. Additional fluids are ordered. The urinalysis eventually does come back and does not show any evidence of infection. The exact cause of her symptomatology is not definitively determined. The possibility of musculoskeletal back pain is possible. Nevertheless, it is felt as though she stable for discharge. Return parameters are discussed. Close follow-up with primary care recommended. Was pt. sent in by a medical professional or institution (, PA, LICENSED LIFE AND HEALTH AGENT, urgent care, hospital, or fpc...) When possible be specific @ -[No] Did you speak to anyone other than the patient for history (EMS, parent, family, police, friend...)? What history was obtained from this source @ -[No] Did you review nursing and triage notes (agree or disagree)? Why? @ -[I reviewed and agree with nursing and triage notes] Were old charts reviewed (outside hosp., previous admission, EMS record, old EKG, old radiological studies, urgent care reports/EKG's, fpc records)? Report findings @ -Old records are reviewed. Differential Diagnosis (chest pain, altered mental status, abdominal pain women, abdominal pain men, vaginal bleeding, weakness, fever, dyspnea, syncope, headache, dizziness, GI bleed, back pain, seizure, CVA, palpatations, mental health, musculoskeletal)? @ -Abdominal pain, left flank pain, kidney stone, pyelonephritis, muscle skeletal back pain, constipation EKG interpreted by me (3pts min.). @ -No EKG is completed X-rays interpreted by me (1pt min.). @ -[None done] CT interpreted by me (1pt min.). @ -CT is interpreted by radiologist U/S interpreted by me (1pt. min.). @ -[None done] What testing was considered but not performed or refused? (CT, X-rays, U/S, labs)? Why? @ -[None] What meds were considered but not given or refused? Why? @ -[None] Did you discuss the management of the patient with other professionals (professionals i.e. , PA, LICENSED LIFE AND HEALTH AGENT, lab, RT, psych nurse, public health social worker, lithograph press feeder, teacher, forest fire control officer, casework supervisor)? Give summary @ -[No] Was smoking cessation discussed for >3mins.? @ -[No] Was critical care preformed (if so, how long)? @ -[No] Were there social determinants of health that impacted care today? How? (Homelessness, low income, unemployed, alcoholism, drug addiction, transportation, low edu. Level, literacy, decrease access to med. care, penitentiary, rehab)? @ -[No] Was there de-escalation of care discussed even if they declined (Discuss DNR or withdrawal of care, Hospice)? DNR status @ -[No] What co-morbidities impacted this encounter? (DM, HTN, Smoking, COPD, CAD, Cancer, CVA, ARF, Chemo, Hep., AIDS, mental health diagnosis, sleep apnea, morbid obesity)? @ -Kidney stones Was patient admitted / discharged? Hospital course, mention meds given and route, prescriptions, significant lab abnormalities, going to OR and other pertinent info. @ -Discharged Undiagnosed new problem with uncertain prognosis? @ -[No] Drug Therapy requiring intensive monitoring for toxicity (Heparin, Nitro, Insulin, Cardizem)? @ -[No] Were any procedures done? @ -[No] Diagnosis/symptom? @ -Flank pain, abdominal pain, back pain Acute, or Chronic, or Acute on Chronic? @ -Acute Uncomplicated (without systemic symptoms) or Complicated (systemic symptoms)? @ -Uncomplicated Side effects of treatment? @ -[No] Exacerbation, Progression, or Severe Exacerbation? @ -[No] Poses a threat to life or bodily function? How? (Chest pain, [place], [place], pneumonia, PE, COPD, DKA, ARF, appy, cholecystitis, CVA, Diverticulitis, Homicidal, Suicidal, threat to staff... and all critical care pts) @ -[No] - Lab Data Result diagrams: 01/25/23 19:21 01/25/23 19:21 Lab Results 01/25/23 01/25/23 01/25/23 Range/Units 19:21 19:21 22:25 WBC 4.1 (3.8-10.6) k/uL RBC 4.66 (3.80-5.40) m/uL Hgb 13.9 (11.4-16.0) gm/dL Hct 40.6 (34.0-46.0) % MCV 87.1 (80.0-100.0) fL MCH 29.9 (25.0-35.0) pg MCHC 34.3 (31.0-37.0) g/dL RDW 13.0 (11.5-15.5) % Plt Count 287 (150-450) k/uL MPV 7.2 Neutrophils % 42 % Lymphocytes % 43 % Monocytes % 10 % Eosinophils % 2 % Basophils % 1 % Neutrophils # 1.7 (1.3-7.7) k/uL Lymphocytes # 1.8 (1.0-4.8) k/uL Monocytes # 0.4 (0-1.0) k/uL Eosinophils # 0.1 (0-0.7) k/uL Basophils # 0.0 (0-0.2) k/uL Sodium 140 (137-145) mmol/L Potassium 3.5 (3.5-5.1) mmol/L Chloride 103 (98-107) mmol/L Carbon Dioxide 25 (22-30) mmol/L Anion Gap 12 mmol/L BUN 12 (7-17) mg/dL Creatinine 0.61 (0.52-1.04) mg/dL Est GFR (CKD-EPI)AfAm >90 (>60 ml/min/1.73 sqM) Est GFR (CKD-EPI)NonAf >90 (>60 ml/min/1.73 sqM) Glucose 96 (74-99) mg/dL Calcium 9.4 (8.4-10.2) mg/dL Total Bilirubin 0.4 (0.2-1.3) mg/dL AST 18 (14-36) U/L ALT 13 (4-34) U/L Alkaline Phosphatase 72 (38-126) U/L Total Protein 7.5 (6.3-8.2) g/dL Albumin 4.4 (3.5-5.0) g/dL Urine Color Light Yellow Urine Appearance Clear (Clear) Urine pH 5.5 (5.0-8.0) Ur Specific [place] 1.009 (1.001-1.035) Urine Protein Negative (Negative) Urine Glucose (UA) Negative (Negative) Urine Ketones Negative (Negative) Urine Blood Negative (Negative) Urine Nitrite Negative (Negative) Urine Bilirubin Negative (Negative) Urine Urobilinogen <2.0 (<2.0) mg/dL Ur Leukocyte Esterase Small H (Negative) Urine RBC <1 (0-5) /hpf Urine WBC 2 (0-5) /hpf Urine Bacteria Rare H (None) /hpf Hyaline Casts 5 H (0-2) /lpf Urine Mucus Many H (None) /hpf Disposition Clinical Impression: Acute abdominal pain, Left flank pain, Back pain Disposition: HOME SELF-CARE Condition: Good Instructions (If sedation given, give patient instructions): Abdominal Pain (ED), Back Pain (ED) Additional Instructions: Please use Tylenol and/or Motrin as needed for pain. Is patient prescribed a controlled substance at d/c from ED?: No Referrals: Ashley Barrett MD [Primary Care Provider] - 1-2 days Time of Disposition: 23:06
[2023-01-25] MEDS ORDERED: ACETAMINOPHEN TAB 500 MG TAB PO STA (22:29)
[2023-01-25 22:37] LABS: Appearance,Urine Clear (Clear); Bacteria,Urine Rare /hpf; Bilirubin,Urine Negative (Negative); Blood,Urine Negative (Negative); Color,Urine Light Yellow; Glucose,Urine (UA) Negative (Negative); Hyaline Casts,Urine 5 /lpf (0-2); Ketones,Urine Negative (Negative); Leukocyte Esterase,Urine Small (Negative); Mucus,Urine Many /hpf; Nitrite,Urine Negative (Negative); PH, Urine 5.5 (5.0-8.0); Protein,Urine Negative (Negative); RBC,Urine <1 /hpf (0-5); Specific Gravity,Urine 1.009 (1.001-1.035); Urobilinogen,Urine <2.0 mg/dL (<2.0); WBC,Urine 2 /hpf (0-5)
[2023-01-25 23:40] VITALS: BP 148/68; PULSE 69; RESP 16; TEMP 97
== END 2023-01-25 23:40 | disposition home or self-care (01) ==
LOC: EC 17:48
DX: R10.32 Left lower quadrant pain (principal); M54.9 Dorsalgia, unspecified; Z86.59 Personal history of other mental and behavioral disorders; Z88.1 Allergy status to other antibiotic agents; Z88.2 Allergy status to sulfonamides
CPT/HCPCS: 36415; 80053; 85025; 81001; 74176; 99284; 96374; 96361; J1885

== ENCOUNTER → 2024-03-12 | Outpatient (CLI) | payer MEDICARE ==
--- NOTE | 2024-03-12 14:50 | CT ---
EXAMINATION TYPE: CT orbits wo con CT DLP: 350 mGycm, Automated exposure control for dose reduction was used. DATE OF EXAM: 03/12/2024 2:20 PM COMPARISON: CT brain 12/21/2019. CLINICAL INDICATION:Female, 53 years old with history of S02.31XA FRACTURE OF ORBITAL FLOOR, RIGHT S JYOTHI, I; PHH, Fall, Bruising around eyes and swelling. FINDINGS: The globes have a normal contour. Postsurgical changes of the bilateral anterior inferior maxillary w alls. The maxillary sinuses are clear. No acute fracture. The orbital fat is unremarkable. Extraocul ar muscles are within normal limits. Right supraorbital hematoma with a maximum thickness of 9 mm. An additional small left medial supraorbital hematoma. Nasal septal spur on the left. IMPRESSION: 1. No acute fracture. 2. Postsurgical changes of both anterior/inferior maxillary sinus hyatt. 3. Bilateral supraorbital soft tissue hematomas with right greater than left. The globes are intact.
== END | disposition home or self-care (01) ==
LOC: RADCTMAIN 13:28
PROVIDERS: ATTEND Ophthalmology
DX: S02.31XA Fracture of orbital floor, right side, initial encounter for closed fracture
CPT/HCPCS: 70480